=== PATIENT | female | born 1940 | race Caucasian/White ===

== ENCOUNTER 2017-02-19 09:08 | Observation (INO) ==
[2017-02-19] MEDS ORDERED: SALINE FLUSH 10ml SYRINGE IVF PRN (09:32)
--- NOTE | 2017-02-19 09:42 | Emergency Department Report ---
Neuro HPI - General Chief Complaint: Altered Mental Status Stated Complaint: Confusion/ left side of face is sore Time Seen by Provider: 02/19/17 09:12 Source: patient, family Mode of arrival: ambulatory Limitations: no limitations - History of Present Illness HPI Narrative: 76yo woman presented to the ER under moderate duress for transient neuro deficits. Pt was at home yesterday (around 1200), when she began to have 'word salad' during a telephone conversation. Pt was able to speak most words clearly , but began to say the wrong word with increasing frequency. Pt tried to dial someone to help her (she was home alone), but she was unable to dial the number she wanted. Pt became frantic, but a cleaning lady came to the home. The cleaning lady was able to contact family members. The children and then came home; the children encouraged the pt to come to the ER last night, but she refused. Sx continued throughout the evening, but pt just 'avoided talking' to avoid having 'symptoms'. This AM, pt awoke without similar trouble finding words , she has not tried to dial (so she doesn't know if she has trouble with numbers anymore), and now has an ache in her left face. Denies weakness or drooping throughout this time. All of her children called again this morning to demand that the pt go to the ER. Onset (ago): hour(s) (9) Time: 1200 Location: speech, left face History of same: No Severity: moderate Relieving factors: none Exacerbating factors: none Context: sudden onset On Anticoagulants: No Associated symptoms: confusion, other Treatments Prior to Arrival: none - Related Data Home Medications: Home Medications Medication Instructions Recorded Confirmed Lactobacillus Combo No.11 1 each PO DAILY 02/19/17 02/19/17 [Probiotic] Multivitamin [Multivitamins] 1 each PO DAILY 02/19/17 02/19/17 Ubidecarenone [Co Q10] 60 mg PO DAILY 02/19/17 02/19/17 Allergies/Adverse Reactions: Allergies Allergy/AdvReac Type Severity Reaction Status Date / Time No Known Allergies Allergy Verified 02/19/17 09:15 Review of Systems All systems: reviewed and negative except as stated Neurological: Reports: as per HPI, paresthesias, confusion. Denies: headache, weakness, numbness, abnormal gait, vertigo [facility] Medical History TIA (transient ischemic attack) (Acute Medical) Medical History Updates: Denies Physical Exam - Limitations Limitations: no limitations - General General appearance: alert, in no apparent distress - Normal Exams: Head:: Normocephalic without trauma Eyes:: Pupils are PERRLA w/ EOMI, No scleral icterus, irritation, or foreign bodies noted ENMT:: No facial trauma, nasal exudates, pharyngeal erythema, or exudates are noted Neck:: Full range of motion, without adenopathy Chest/Respirations:: Clear all maxwell, with good airflow, and symmetry bilaterally Cardiovascular:: Regular rate and rhythm, without murmur or gallop, Pulses 2+ all extremities, capillary refill, <2 seconds all extremities Lymphatic:: No lymphadenopathy Musculoskeletal:: No tenderness, or deformity noted Integumentary:: No rashes, hives, or bruising noted Neurological:: Patient is alert Psychiatric:: Patient exhibits, appropriate attention - Expanded Neurological Exam Patient oriented to: Present: person, place. Absent: time Speech: Present: fluid speech Cranial nerves: Normal: EOM function (II, III, IV, ), facial palsy (VII), spinal accessory function (XI), tongue deviation (XII), Abnormal Left: facial sensation (V) Cerebellar function: normal gait Motor strength - LUE: 5/5 Motor strength - RUE: 5/5 Motor strength - LLE: 5/5 Motor strength - RLE: 5/5 Upper motor neuron exam: Absent bilaterally: betina neglect, pronator drift DTR: 2+: biceps (L), biceps (R), patellar (L), patellar (R) Coma scale eye opening: spontaneous Coma scale motor response: obeys commands Coma scale verbal response: oriented Coma scale total: 15 Course - Consultations Consultation #1: Dr. Jarvis: Will admit for obs and further w/u. Time: 10:10 Vital Signs Temperature 98 F 02/19/17 09:16 Pulse Rate 74 02/19/17 09:16 Respiratory Rate 16 02/19/17 09:16 Blood Pressure 140/86 H 02/19/17 09:16 Pulse Oximetry 97 02/19/17 09:16 Temperature 98 F 02/19/17 09:16 Pulse Rate 63 02/19/17 10:03 Respiratory Rate 12 02/19/17 10:03 Blood Pressure 123/72 02/19/17 10:03 Pulse Oximetry 97 02/19/17 10:03 Neuro Symptoms/Deficit - MDM Narrative Medical decision making narrative: Pt with TIA vs CVA on hx. Pt is not on medication for primary prevention. Denies PMHx. Strong concern for undiagnosed/untreated underlying risk factors. Will discuss admission for MRI, further eval, and secondary prevention. Pt and family voiced understanding of dx, prognosis, tx, and f/u need. - Differential Diagnosis Likely: delirium, subarachnoid hemorrhage, peripheral neuropathy, cerebrovascular accident, transient cerebral ischemia - Medical Records Attestation: I reviewed the patient's medical records. - Lab Data Attestation: I reviewed the patient's lab results. Result diagrams: 02/19/17 09:59 02/19/17 09:59 Lab Results 02/19/17 02/19/17 02/19/17 Range/Units 09:59 09:59 10:28 WBC 4.2 L (4.5-11.0) T/MM3 RBC 4.20 (4.00-5.20) M/MM3 Hgb 12.6 (12-16) GM/DL Hct 39.3 (36-46) % MCV 93.6 (80-100) UM3 MCH 30.0 (26-34) UUG MCHC 32.1 (31-37) GM/DL RDW Std Deviation 46.8 (36.9-50.2) FL Plt Count 240 (130-400) T/MM3 MPV 9.9 (9.4-12.4) UM3 Immature Gran % (Auto) 0.0 (0.0-0.5) % Neut % (Auto) 53.7 (33-66) % Lymph % (Auto) 30.9 (23-45) % [place] % (Auto) 10.7 H (0-9.0) % Eos % (Auto) 4.0 (0-4) % Baso % (Auto) 0.7 (0-2) % Neut # (Auto) 2.3 (1.8-7.7) T/MM3 Lymph # (Auto) 1.3 (1-4.8) T/MM3 [place] # (Auto) 0.5 (0-0.8) T/MM3 Eos # (Auto) 0.2 (0-0.5) T/MM3 Baso # (Auto) 0.0 (0-0.2) T/MM3 Abs Immat Gran (auto) 0.00 (0.00-0.03) T/MM3 Turbidity < 20 (0-20) Sodium 144 (134-144) MEQ/L Potassium 4.0 (3.6-5) MEQ/L Chloride 109 H (98-107) MEQ/L Carbon Dioxide 26 (22-30) MEQ/L Anion Gap 9 (5-15) MEQ/L BUN 13.0 (7-17) MG/DL Creatinine 0.7 (0.7-1.2) MG/DL GFR Calculation 81 BUN/Creatinine Ratio 19 (6-26) RATIO Glucose 85 (65-110) MG/DL Calculated Osmolality 276 (261-280) MOSM/KG Calcium 9.1 (8.4-10.2) MG/DL Total Bilirubin 0.50 (0.20-1.30) MG/DL Icterus Index < 2 (0-7) AST 20 (14-36) U/L ALT 34 (9-52) U/L Alkaline Phosphatase 72 (38-126) U/L Troponin I < 0.012 (0-0.12) ng/ml Total Protein 6.7 (6.3-8.2) G/DL Albumin 3.9 (3.5-5.0) G/DL Globulin 2.8 (2.4-3.6) G/DL Albumin/Globulin Ratio 1.4 (1.1-2.2) RATIO Specimen Hemolysis < 15 (0-25) Ur Collection Type Urine, clean catch Urine Color Yellow (YELLOW) Urine Clarity Clear Urine pH 6.5 (5.0-8.0) Ur Specific [place] 1.010 L (1.015-1.025) Urine Protein Negative (NEGATIVE) Urine Glucose (UA) Negative (NEGATIVE) Urine Ketones Negative (NEGATIVE) Urine Occult Blood Negative (NEGATIVE) Urine Nitrate Negative (NEGATIVE) Urine Bilirubin Negative (NEGATIVE) Urine Urobilinogen 0.2 (NORMAL) EU/DL Ur Leukocyte Esterase Negative (NEGATIVE) Urinalysis Comment Microscopic not ind. - Radiology Data Attestation: I reviewed the patient's radiology results. CT Head: IMPRESSION: 1. No acute intracranial hemorrhage or obvious territorial stroke. 2. Extensive white matter disease slightly advanced for the patient's age probably representing chronic microvascular ischemia. Due to the diffuse involvement and lack of available comparison, a small area of acute ischemia could be easily obscured by this process. MRI can be performed for further evaluation of acute ischemia as clinically indicated. 3. Acute on chronic right maxillary sinusitis. Disposition Clinical Impression: TIA (transient ischemic attack) Qualifiers: Transient cerebral ischemia type: unspecified Qualified Code(s): G45.9 - Transient cerebral ischemic attack, unspecified Disposition: Discharged Home, Self-Care Print Language: Vietnamese Condition: Stable Prescriptions: No Action Multivitamin [Multivitamins] 1 each PO DAILY Lactobacillus Combo No.11 [Probiotic] 1 each PO DAILY Ubidecarenone [Co Q10] 60 mg PO DAILY Time of Disposition: 10:23 - Seen By: physician
--- OUTSIDE RECORDS SUMMARY | 2017-02-19 09:54 | External Medical Summary | Continuity of Care Document ---
:1940 Author Organization [facility] Allergies Medications Problems Procedures Results Encounters ACCT No. Visit Discharge Status Pt. Type Provider Facility Loc./Unit Complaint Date/Time [id number] 07/30/2016 07/30/2016 CLS Outpatient [facility], 08:53:00 23:59:59 Hamilton Musa [id number] 07/30/2016 07/30/2016 CLS Outpatient Delia, 08:52:00 23:59:59 Yanet
--- NOTE | 2017-02-19 09:55 | CT Scan Report ---
Indication: Neuro def PROCEDURE: CT head/brain wo con: Encounter: Initial Comparison: None Technique: Axial CT images through the head were performed without contrast. Iterative Reconstruction dose reducing technique was utilized. FINDINGS: Bilateral basal ganglia calcifications. The ventricles are of normal size, shape, and contour for the patient's age. Multiple low-attenuation regions are seen in the bilateral frontoparietal white matter probably due to chronic microvascular ischemia. The brainstem, cerebellum, and cerebral hemispheres otherwise have a normal morphology and CT attenuation. There is no evidence of midline displacement. No hemorrhage, signs of acute territorial stroke, mass effect, mass lesions, or edema is evident. The visualized portions of the skull base, midface, and calvarium demonstrate no abnormality. Acute on chronic right maxillary sinusitis. The tympanic and mastoid cavities appear normal. IMPRESSION: 1. No acute intracranial hemorrhage or obvious territorial stroke. 2. Extensive white matter disease slightly advanced for the patient's age probably representing chronic microvascular ischemia. Due to the diffuse involvement and lack of available comparison, a small area of acute ischemia could be easily obscured by this process. MRI can be performed for further evaluation of acute ischemia as clinically indicated. 3. Acute on chronic right maxillary sinusitis. .
--- NOTE | 2017-02-19 10:02 | XRay Report ---
Indication: TIA PROCEDURE: XR chest 1V: Encounter: Initial Comparison: None FINDINGS: Asymmetric increased density to the right hilum. Lungs are otherwise clear. No pleural effusion or pneumothorax identified. The heart size, pulmonary vasculature and mediastinum are within normal limits. No significant skeletal abnormality is seen. IMPRESSION: Asymmetric increased density of the right hilum could represent an area of atelectasis or less likely lymphadenopathy/mass. Comparison with any available prior study with be helpful. Noncontrast chest CT could be performed for further evaluation on a nonemergent basis. .
[2017-02-19 11:38] VITALS: BMI 23.1
--- NOTE | 2017-02-19 12:55 | History & Physical Report ---
History of Present Illness Date: 02/19/17 Chief complaint: stroke like symtpoms yesterday HPI: Patient is a 76 yo female who came in to the ER this am b/c she had stroke like sxs yesterday. She reports that yesterday afternoon she had a 30+ minute period where she was saying the wrong words and couldn't dial her phone to call for help and her speech was slurred. Some cleaning ladies came by a little while after this and she states she talked to them, but she talked very slowly and was able to communicate. She states she didn't tell them she was having any problems. By the time her arrived home, her sxs had resolved and he didn't think she needed to come to ER. He thought she was just stressed out. This am she woke up with a dull ache to the entire L side of her face, but no numbness. Her children insisted this am that she come to be evaluated. She has no weakness and all speech issues have resolved. No h/o HTN. Takes no Rx meds. In general, is in good health. See Dr. Capo Shukla for her primary care. In ER she had CT head showing white matter disease and acute on chronic R maxillary sinusitis. CXR showed an asymmetric increased density of the right hilum which could represent an area of atelectasis or less likely lymphadenopathy/mass. Labs were essentially normal. She was admitted for observation and further w-u including MRI, carotid sono and echo. Review of Systems All systems PM: 10-point ROS was reviewed, no additional remarkable complaints except - EENMT EENMT Comments: L side of face "aches" - Gastrointestinal Gastrointestinal: Present: constipation (chronic) - Musculoskeletal Musculoskeletal Comments: decreased ROM in L arm due to previous frozen shoulder. PFSH Medical History H/o migraines H/o L frozen shoulder chronic constipation Surgical History: hyst/bladder repair (states following this surgery she had some memory loss) Family History: F - Alzheimers M - MS Brother - "heart problems" - Social History Smoking status: Never smoker Substance use type: does not use Alcohol intake frequency: does not drink Housing: house Household members: spouse Current occupational status: retired Social history: PCP- Dr. Capo Shukla Moved here from [place] approx a year ago. Medications Home Medications Medication Instructions Recorded Confirmed Type Lactobacillus Combo No.11 1 each PO DAILY 02/19/17 02/19/17 History [Probiotic] Multivitamin [Multivitamins] 1 each PO DAILY 02/19/17 02/19/17 History Ubidecarenone [Co Q10] 60 mg PO DAILY 02/19/17 02/19/17 History Allergies Allergy/AdvReac Type Severity Reaction Status Date / Time No Known Allergies Allergy Verified 02/19/17 09:15 Exam Vital Signs: Temperature 96.0 F L 02/19/17 11:32 Pulse Rate 63 02/19/17 11:32 Respiratory Rate 16 02/19/17 11:32 Blood Pressure 117/67 02/19/17 11:32 Pulse Oximetry 98 02/19/17 11:32 Height/Weight/BMI: Height 1.63 m Weight 61.2 kg Body Mass Index 23.1 - Constitutional Present: no acute distress, well nourished, well developed, thin - Routine HEENT Exam Head: Present: normocephalic, atraumatic Eye: Present: EOMI, PERRL ENT: Present: mucous membranes moist, dentition normal - Routine Neck Exam Present: supple. Absent: carotid bruit, lymphadenopathy, thyromegaly - Routine Respiratory Exam Present: CTA bilaterally. Absent: wheezes - Routine Cardiovascular Exam Present: RRR, S1, S2. Absent: murmur - Routine Abdominal Exam Present: soft, normoactive bowel sounds, non distended. Absent: tenderness - Routine Extremities Exam Present: no edema, normal capillary refill - Routine Skin Exam Present: dry, warm - Routine Neurological Exam Present: alert, oriented X3, CN II-XII intact, moving all extremities, normal tone, vision grossly intact, hearing grossly intact (wears hearing aids), normal speech. Absent: sensory deficit, motor deficit, pronator drift, altered mental status, facial asymmetry, tremors 5/5 strength to all extremities. - Detailed Neurological Exam Sensory: Normal lower extremity light touch, Normal upper extremity light touch - Routine Psychiatric Exam Present: normal affect, normal thought process, cooperative, good insight, good judgment. Absent: depressed, anxious Results - Labs CBC & Chem 7: 02/19/17 09:59 02/19/17 09:59 Labs: Troponin and ALT, AST, alk phos all nl. UA - neg - Imaging and Cardiology CT scan - head Additional comments: IMPRESSION: 1. No acute intracranial hemorrhage or obvious territorial stroke. 2. Extensive white matter disease slightly advanced for the patient's age probably representing chronic microvascular ischemia. Due to the diffuse involvement and lack of available comparison, a small area of acute ischemia could be easily obscured by this process. MRI can be performed for further evaluation of acute ischemia as clinically indicated. 3. Acute on chronic right maxillary sinusitis. Chest x-ray Additional comments: IMPRESSION: Asymmetric increased density of the right hilum could represent an area of atelectasis or less likely lymphadenopathy/mass. Comparison with any available prior study with be helpful. Noncontrast chest CT could be performed for further evaluation on a nonemergent basis. Assessment and Plan Assessment and Plan: Assessment TIA Acute on chronic right maxillary sinusitis Possible abnormal finding on CXR H/o migraine headaches H/o L frozen shoulder Plan Admit to observation status under hospitalist service (Dr Jarvis, attending) for further workup to include carotid sonogram,, echocardiogram, MRI of brain. Will start a daily aspirin and statin. Will need to discuss the pros and cons of the statin with patient as she does not wish to take medicines unless she believes it absolutely necessary. Will plan to discuss this tomorrow with patient. SCDs for DVT prophylaxis. She will also be up walking frequently. Hopefully will be discharged tomorrow. Will check with patient to see if she has any symptoms of sinusitis given the findings on CT. If she has classic findings that could correlate with a bacterial sinusitis, will proceed with antibiotic coverage. We'll have her follow up with her PCP regarding the findings on her chest x- ray. Perhaps they may be able to access previous chest x-ray. Patient wishes to be DO NOT RESUSCITATE. Patient's care return to Dr. Capo Shukla upon discharge. Case discussed with Dr. Jarvis, patient's daughter and nurse. I have independently evaluated and examined this patient. I reviewed the chart, the patient's history, and the LICENSED PHARMACIST/PA's documented findings as above. We discussed and formulated the assessment and plan as above with additions as below: Mrs. Gonzales is a 76 year old who had trouble finding the right words then dialing her phone yesterday. Today, at family's urging she presented to the ER. Her symptoms had resolved. She was brought in under observation to w/u a suspected TIA. 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 The patient was not taking an aspirin a day. She does not like taking medications. She denies any weakness. Her facial pain has resolved. She is a wd/wn female in nad. Lungs are ctab. Heart is rrr w/o m,r,g. Abdomen is benign. Ext with no c/c/e. CN II-XII are intact. No focal defecit. She is A& O. Patient has been started on ASA and statin. It has been explained to her, more than once, that these meds are to try to prevent another stroke. It has also been explained that symptoms like these need prompt medical attention and she should call if she experiences stroke-like symptoms again. Will monitor BP. Carotid doppler is unremarkable. By verbal report her echo is OK. Expect she will go home tomorrow. DVT Prophylaxis: SCD's Resuscitation Status: Do Not Resuscitate Hospital Course Summary Disclaimer: The visit summary below is not to be considered part of the above Progress Note. Hospital Course: Assessment TIA Acute on chronic right maxillary sinusitis Possible abnormal finding on CXR H/o migraine headaches H/o L frozen shoulder 02/19/17 admission for hospital observation Admit to observation status under hospitalist service (Dr Jarvis, attending) for further workup to include carotid sonogram,, echocardiogram, MRI of brain. Will start a daily aspirin and statin. Will need to discuss the pros and cons of the statin with patient as she does not wish to take medicines unless she believes it absolutely necessary. Will plan to discuss this tomorrow with patient. SCDs for DVT prophylaxis. She will also be up walking frequently. Hopefully will be discharged tomorrow. Will check with patient to see if she has any symptoms of sinusitis given the findings on CT. If she has classic findings that could correlate with a bacterial sinusitis, will proceed with antibiotic coverage. We'll have her follow up with her PCP regarding the findings on her chest x- ray. Perhaps they may be able to access previous chest x-ray. Patient wishes to be DO NOT RESUSCITATE. Patient's care return to Dr. Capo Shukla upon discharge. Case discussed with Dr. Jarvis, patient's daughter and nurse. 02/19/17 21:41 Patient has been started on ASA and statin. It has been explained to her, more than once, that these meds are to try to prevent another stroke. It has also been explained that symptoms like these need prompt medical attention and she should call 9--1 if she experiences stroke-like symptoms again. Will monitor BP. Carotid doppler is unremarkable. By verbal report her echo is OK. Expect she will go home tomorrow.
--- NOTE | 2017-02-19 15:05 | Ultrasound Report ---
Indication: stroke like sxs PROCEDURE: US carotid doppler BI: TECHNIQUE: Grayscale, color and duplex Doppler imaging was performed of the carotid systems bilaterally. Velocities in cm/sec - validated velocity measurements with angiographic measurements, velocity criteria are extrapolated from diameter data as defined by the Society of Radiologists in Ultrasound Consensus Conference Radiology 2003; 229;340-346. RIGHT: PSV ICA 91.1 EDV ICA 32.1 PSV CCA 77.6 EDV CCA 17.3 SVR 1.2 PSV ECA 104 ICA Diameter reduction 10%-30% (1.0-1.2 PSV<110)% LEFT: PSV ICA 97.1 EDV ICA 30.1 PSV CCA 76.1 EDV CCA 13.3 SVR 1.3 PSV ECA 105 ICA Diameter reduction 20%-40% (1.2-1.4 [id number])% The right vertebral artery is patent with cephalic flow. The left vertebral artery is patent with cephalic flow. Minimal plaque in the carotid bulbs. No focal velocity elevation. IMPRESSION: No hemodynamically significant carotid stenosis. .
[2017-02-19] MEDS ORDERED: ACETAMINOPHEN 325 MG TABLET PO PRN (15:59)
--- NOTE | 2017-02-19 16:33 | Magnetic Resonance Report ---
Indication: stroke like sxs PROCEDURE: MR head/brain wo con: Encounter: Initial Comparisons: Head CT from today Technique: Multiplanar, multisequence, MR imaging of the head without contrast was acquired. FINDINGS: Small 6 mm focus of punctate acute diffusion restriction in the left parietal lobe on diffusion weighted image #14. This is in the subcortical area and has expected T2/FLAIR hyperintensity, blending in with existing diffuse periatrial white matter hyperintense lesions. One additional similar sized punctate focus of diffusion restriction in the left occipital lobe seen on image #18. The ventricles are of normal size, shape, and contour for the patient's age. There are extensive areas of T2-weighted and T2 FLAIR weighted signal abnormality in the deep frontoparietal white matter that most likely represent small vessel ischemic disease. This is advanced for the patient's age. The brain stem, cerebellum, and cerebral hemispheres otherwise have a normal morphologic appearance as well as MR signal intensity on all pulse sequences. There is no evidence of an intracranial mass lesion, intracranial hemorrhage, or hydrocephalus. The visualized portions of the orbits, calvarium, and skull base demonstrate no significant abnormality. Mostly opacified right sinus with an acute air-fluid level again noted. 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 .
--- NOTE | 2017-02-19 20:52 | Echocardiogram ---
DATE OF PROCEDURE February 19, 2017 This is a two-dimensional echo with spectral Doppler, color-flow and M-mode. It was obtained in a patient with stroke-like symptoms with dysphagia and right arm weakness. Left atrial dimension is normal. Left ventricular end-diastolic dimension is normal. Left ventricular wall thickness is normal. LV systolic function is normal with ejection fraction of 75%. Right atrium is normal. Right ventricle is normal. Aortic root dimension is normal. Grossly, there is no intracardiac thrombus or mass. Mitral valve is morphologically normal with trace of mitral regurgitation. Aortic valve appears to be normal. Tricuspid valve shows mild tricuspid regurgitation with moderate pulmonary hypertension with estimated pulmonary artery systolic pressure of 44. Pulmonary valve shows no pulmonary insufficiency. There is no pericardial effusion. IMPRESSION 1. Grossly, no intracardiac thrombus or mass. 2. Normal LV systolic function with ejection fraction of 75%. 3. Mild tricuspid regurgitation with moderate pulmonary hypertension with estimated pulmonary artery systolic pressure of 44. 4. Trace of mitral regurgitation. MTDD
[2017-02-19] MEDS: ASPIRIN *EC* 81 MG TABLET PO SCH (21:39)
[2017-02-20 00:30] VITALS: RESP 16
[2017-02-20] MEDS ORDERED: UBIDECARENONE 60 MG PO SCH (09:00)
[2017-02-20] MEDS ORDERED: LACTOBACILLUS (15B cfu) CAPSULE PO SCH (09:00)
[2017-02-20] MEDS ORDERED: MULTI-VITAMIN PLAIN TABLET PO SCH (09:00)
[2017-02-20 09:10] VITALS: BP 110/66; PULSE 81; TEMP 96.5; O2SAT 95
[2017-02-20] MEDS: ASPIRIN *EC* 81 MG TABLET PO SCH (10:22)
[2017-02-20] MEDS ORDERED: COENZYME Q-10 200mg TABLET PO SCH (10:30)
--- NOTE | 2017-02-20 14:36 | Discharge Summary ---
<Ava Shaw - Last Filed: 02/20/17 18:09> Discharge Information Date of admission: 02/19/17 11:14 Anticipated date of discharge: 02/20/17 Attending Physician: Sanchez Jarvis IV, MD Primary care physician: Kaiden Shukla MD Consults: none - Discharge Diagnosis (1) CVA (cerebral vascular accident) Status: Acute CVA (acute L ELECTROTYPE SERVICER territory infarcts) Acute on chronic right maxillary sinusitis-found on CT head Possible abnormal finding on CXR H/o migraine headaches H/o L frozen shoulder - Laboratory Labs: Laboratory Tests 02/19/17 02/19/17 09:59 19:19 INR 0.99 APTT 26.9 AST 20 ALT 34 Alkaline Phosphatase 72 Troponin I < 0.012 Laboratory Tests 02/19/17 09:58 Triglycerides 56 Cholesterol 185 LDL Cholesterol, Calc 96.8 VLDL Cholesterol 11.2 HDL Cholesterol 77 H Cholesterol/HDL Ratio 2.4 Laboratory Tests 02/19/17 10:28 Ur Collection Type Urine, clean catch Urine Color Yellow Urine Clarity Clear Urine pH 6.5 Ur Specific [place] 1.010 L Urine Protein Negative Urine Glucose (UA) Negative Urine Ketones Negative Urine Occult Blood Negative Urine Nitrate Negative Urine Bilirubin Negative Urine Urobilinogen 0.2 Ur Leukocyte Esterase Negative - Radiology Radiology: Date of Exam: 02/19/17 Ordering Provider: Ava Shaw Type of Exam(s): MR head/brain wo con Reason for Exam(s): stroke like sxs Indication: stroke like sxs PROCEDURE: MR head/brain wo con: Encounter: Initial Comparisons: Head CT from today Technique: Multiplanar, multisequence, MR imaging of the head without contrast was acquired. FINDINGS: Small 6 mm focus of punctate acute diffusion restriction in the left parietal lobe on diffusion weighted image #14. This is in the subcortical area and has expected T2/FLAIR hyperintensity, blending in with existing diffuse periatrial white matter hyperintense lesions. One additional similar sized punctate focus of diffusion restriction in the left occipital lobe seen on image #18. The ventricles are of normal size, shape, and contour for the patient's age. There are extensive areas of T2-weighted and T2 FLAIR weighted signal abnormality in the deep frontoparietal white matter that most likely represent small vessel ischemic disease. This is advanced for the patient's age. The brain stem, cerebellum, and cerebral hemispheres otherwise have a normal morphologic appearance as well as MR signal intensity on all pulse sequences. There is no evidence of an intracranial mass lesion, intracranial hemorrhage, or hydrocephalus. The visualized portions of the orbits, calvarium, and skull base demonstrate no significant abnormality. Mostly opacified right sinus with an acute air-fluid level again noted. IMPRESSION: Two small punctate acute left ELECTROTYPE SERVICER territory infarcts involving the left parietal and occipital lobes. Date of Exam: 02/19/17 Ordering Provider: Ava Shaw Type of Exam(s): US carotid doppler BI Reason for Exam(s): stroke like sxs Indication: stroke like sxs PROCEDURE: US carotid doppler BI: TECHNIQUE: Grayscale, color and duplex Doppler imaging was performed of the carotid systems bilaterally. Velocities in cm/sec - validated velocity measurements with angiographic measurements, velocity criteria are extrapolated from diameter data as defined by the Society of Radiologists in Ultrasound Consensus Conference Radiology 2003; 229;340-346. RIGHT: PSV ICA 91.1 EDV ICA 32.1 PSV CCA 77.6 EDV CCA 17.3 SVR 1.2 PSV ECA 104 ICA Diameter reduction 10%-30% (1.0-1.2 PSV<110)% LEFT: PSV ICA 97.1 EDV ICA 30.1 PSV CCA 76.1 EDV CCA 13.3 SVR 1.3 PSV ECA 105 ICA Diameter reduction 20%-40% (1.2-1.4 [id number])% The right vertebral artery is patent with cephalic flow. The left vertebral artery is patent with cephalic flow. Minimal plaque in the carotid bulbs. No focal velocity elevation. IMPRESSION: No hemodynamically significant carotid stenosis. Date of Exam: 02/19/17 Type of Exam(s): US echo doppler complete DATE OF PROCEDURE February 19, 2017 This is a two-dimensional echo with spectral Doppler, color-flow and M-mode. It was obtained in a patient with stroke-like symptoms with dysphagia and right arm weakness. Left atrial dimension is normal. Left ventricular end-diastolic dimension is normal. Left ventricular wall thickness is normal. LV systolic function is normal with ejection fraction of 75%. Right atrium is normal. Right ventricle is normal. Aortic root dimension is normal. Grossly, there is no intracardiac thrombus or mass. Mitral valve is morphologically normal with trace of mitral regurgitation. Aortic valve appears to be normal. Tricuspid valve shows mild tricuspid regurgitation with moderate pulmonary hypertension with estimated pulmonary artery systolic pressure of 44. Pulmonary valve shows no pulmonary insufficiency. There is no pericardial effusion. IMPRESSION 1. Grossly, no intracardiac thrombus or mass. 2. Normal LV systolic function with ejection fraction of 75%. 3. Mild tricuspid regurgitation with moderate pulmonary hypertension with estimated pulmonary artery systolic pressure of 44. 4. Trace of mitral regurgitation. Date of Exam: 02/19/17 Ordering Provider: Daniel Germain DO Type of Exam(s): CT head/brain wo con Reason for Exam(s): Neuro def Indication: Neuro def PROCEDURE: CT head/brain wo con: Encounter: Initial Comparison: None Technique: Axial CT images through the head were performed without contrast. Iterative Reconstruction dose reducing technique was utilized. FINDINGS: Bilateral basal ganglia calcifications. The ventricles are of normal size, shape, and contour for the patient's age. Multiple low-attenuation regions are seen in the bilateral frontoparietal white matter probably due to chronic microvascular ischemia. The brainstem, cerebellum, and cerebral hemispheres otherwise have a normal morphology and CT attenuation. There is no evidence of midline displacement. No hemorrhage, signs of acute territorial stroke, mass effect, mass lesions, or edema is evident. The visualized portions of the skull base, midface, and calvarium demonstrate no abnormality. Acute on chronic right maxillary sinusitis. The tympanic and mastoid cavities appear normal. IMPRESSION: 1. No acute intracranial hemorrhage or obvious territorial stroke. 2. Extensive white matter disease slightly advanced for the patient's age probably representing chronic microvascular ischemia. Due to the diffuse involvement and lack of available comparison, a small area of acute ischemia could be easily obscured by this process. MRI can be performed for further evaluation of acute ischemia as clinically indicated. 3. Acute on chronic right maxillary sinusitis. . Date of Exam: 02/19/17 Ordering Provider: Daniel Germain DO Type of Exam(s): XR chest 1V Reason for Exam(s): TIA Indication: TIA PROCEDURE: XR chest 1V: Encounter: Initial Comparison: None FINDINGS: Asymmetric increased density to the right hilum. Lungs are otherwise clear. No pleural effusion or pneumothorax identified. The heart size, pulmonary vasculature and mediastinum are within normal limits. No significant skeletal abnormality is seen. IMPRESSION: Asymmetric increased density of the right hilum could represent an area of atelectasis or less likely lymphadenopathy/mass. Comparison with any available prior study with be helpful. Noncontrast chest CT could be performed for further evaluation on a nonemergent basis. History of Present Illness HPI: Patient is a 76 yo female who came in to the ER this am b/c she had stroke like sxs yesterday. She reports that yesterday afternoon she had a 30+ minute period where she was saying the wrong words and couldn't dial her phone to call for help and her speech was slurred. Some cleaning ladies came by a little while after this and she states she talked to them, but she talked very slowly and was able to communicate. She states she didn't tell them she was having any problems. By the time her arrived home, her sxs had resolved and he didn't think she needed to come to ER. He thought she was just stressed out. This am she woke up with a dull ache to the entire L side of her face, but no numbness. Her children insisted this am that she come to be evaluated. She has no weakness and all speech issues have resolved. No h/o HTN. Takes no Rx meds. In general, is in good health. See Dr. Capo Shukla for her primary care. In ER she had CT head showing white matter disease and acute on chronic R maxillary sinusitis. CXR showed an asymmetric increased density of the right hilum which could represent an area of atelectasis or less likely lymphadenopathy/mass. Labs were essentially normal. She was admitted for observation and further w-u including MRI, carotid sono and echo. Objective Vital signs: Temperature 96.5 F L 02/20/17 09:06 Pulse Rate 81 02/20/17 09:06 Respiratory Rate 16 02/20/17 09:06 Blood Pressure 110/66 02/20/17 09:06 Pulse Oximetry 95 02/20/17 09:06 Height/Weight/BMI: Height 1.63 m Weight 61.3 kg Body Mass Index 23.1 - Constitutional Present: well nourished, well developed - Routine HEENT Exam Head: Present: normocephalic, atraumatic Eye: Present: EOMI ENT: Present: mucous membranes moist - Routine Respiratory Exam Present: CTA bilaterally. Absent: wheezes - Routine Cardiovascular Exam Present: RRR, S1, S2. Absent: murmur - Routine Abdominal Exam Present: soft, normoactive bowel sounds, non distended. Absent: tenderness - Routine Extremities Exam Present: edema, normal capillary refill - Routine Skin Exam Present: dry, warm - Routine Neurological Exam Present: alert, oriented X3, CN II-XII intact - Routine Lymphatic Exam Lymphatic: Absent: adenopathy - Routine Psychiatric Exam Present: normal affect, cooperative Hospital Course This is a general summary of the patient's hospital course. For more details refer to the complete medical record. Hospital course: Assessment TIA Acute on chronic right maxillary sinusitis Possible abnormal finding on CXR H/o migraine headaches H/o L frozen shoulder 02/19/17 admission for hospital observation Admit to observation status under hospitalist service (Dr Jarvis, attending) for further workup to include carotid sonogram,, echocardiogram, MRI of brain. Will start a daily aspirin and statin. Will need to discuss the pros and cons of the statin with patient as she does not wish to take medicines unless she believes it absolutely necessary. Will plan to discuss this tomorrow with patient. SCDs for DVT prophylaxis. She will also be up walking frequently. Hopefully will be discharged tomorrow. Will check with patient to see if she has any symptoms of sinusitis given the findings on CT. If she has classic findings that could correlate with a bacterial sinusitis, will proceed with antibiotic coverage. We'll have her follow up with her PCP regarding the findings on her chest x- ray. Perhaps they may be able to access previous chest x-ray. Patient wishes to be DO NOT RESUSCITATE. Patient's care return to Dr. Capo Shukla upon discharge. Case discussed with Dr. Jarvis, patient's daughter and nurse. 02/20/17 MRI showed acute infarct. Patient was started on ASA 81mg and Lipitor 40mg qd. Echo and carotid sono were ok. Lipids were nl. Pt's sxs have completely resolved. Pt instructed to seek care immediately if she has further stroke sxs. She will see her PCP in 1 week. Discussed case with Dr. Shukla. I have relayed to him that I did not discuss the findings on CT or on CXR. He will address at her follow-up visit. Time spent with patient: greater than 35 minutes Discharge Plan - Discharge Disposition Disposition: Discharged Home, Self-Care *Condition: Stable Reason For Visit (Visit label in EMR): Confusion/ left side of face is sore - Discharge Medications *Discharge Medications: New Aspirin *EC* [Ecotrin] 81 mg PO DAILY tablet Atorvastatin [Lipitor] 1 tab PO HS #30 tab Continue Multivitamin [Multivitamins] 1 each PO DAILY Lactobacillus Combo No.11 [Probiotic] 1 each PO DAILY Ubidecarenone [Co Q10] 60 mg PO DAILY - Discharge Packet/Instructions *Diet: regular *Activity: normal daily activities *Pain Management/Treatment: n/a *Wound Care: n/a *Expected Signs/Symptoms: n/a *Notify Physician if: stroke sxs occur *During Business Hours Contact: Dr. Shukla *After Business Hours Contact: Dr. Shukla *Pending Lab/Results: No Pending Lab - Referrals/Follow Up *Referrals/Follow Up: Kaiden Shukla MD [Family Provider] - 1 Week - Patient Handouts - Dismissal Complete Discharge Instructions are:: Complete <Sanchez Jarvis IV - Last Filed: 02/20/17 19:00> Discharge Information Date of admission: 02/19/17 11:14 Attending Physician: Sanchez Jarvis IV, MD Primary care physician: Kaiden Shukla MD - Discharge Diagnosis (1) CVA (cerebral vascular accident) Status: Acute Objective Vital signs: Temperature 96.5 F L 02/20/17 09:06 Pulse Rate 81 02/20/17 16:00 Respiratory Rate 16 02/20/17 09:06 Blood Pressure 110/66 02/20/17 09:06 Pulse Oximetry 95 02/20/17 09:06 Height/Weight/BMI: Height 5 ft 4 in Weight 61.3 kg Body Mass Index 23.1 Hospital Course This is a general summary of the patient's hospital course. For more details refer to the complete medical record. Attestation Narriative - Attestation Attestation Narrative: 02/20/17 18:56 I have independently evaluated and examined this patient. I reviewed the chart, the patient's history, and the RING FACER/PA's documented findings as above. We discussed and formulated the assessment and plan as above with additions as below: Mrs. Gonzales says she is doing well. She denies any trouble speaking, no weakness, no headache. She is looking forward to go home. NAD CTAB RRR no murmur s/nt/nd no edema cn II-XII intact Patient to continue on ASA. Rx given for Lipitor on dismissal. Stable to dismiss to home.
== END 2017-02-20 17:00 | disposition home or self-care (01) ==
LOC: ED 09:08 → MED 09:08
PROVIDERS: ADMIT Hospitalist; ATTEND Hospitalist

== ENCOUNTER 2017-11-12 23:02 | Observation (INO) ==
--- OUTSIDE RECORDS SUMMARY | 2017-11-12 23:58 | External Medical Summary | Referral Summary ---
:1940 Author Organization [facility] Address [address] [place] [address] Care Team Providers Name Role Phone PROVIDER, NOTINSYSTEM Primary Care Physician Unavailable Encounter Date(s): 10/17/16 - 10/18/16 [facility] [address], [place] [address] Discharge Disposition: 01-Home or Self Care Attending Physician: Brionna Ellis MD Admitting Physician: Brionna Ellis MD Vital Signs Most recent to oldest [Reference Range]: 1 Temperature Oral [35.8-37.3 degC] 37.0 degC (10/18/16 12:13 PM) Temperature Skin [36-37 degC] 36.7 degC (10/17/16 1:30 PM) Temperature Temporal Artery [36.3-37.8 degC] 36.2 degC *LOW* (10/17/16 5:53 AM) Peripheral Pulse Rate [60-100 bpm] 83 bpm (10/18/16 12:13 PM) Heart Rate Monitored [60-100 bpm] 89 bpm (10/17/16 1:30 PM) Respiratory Rate [14-20 br/min] 16 br/min (10/18/16 12:13 PM) Blood Pressure [90-140/60-90 mmHg] 90/56 mmHg (10/18/16 12:13 PM) Mean Arterial Pressure, Cuff 85 mmHg (10/17/16 8:02 PM) SpO2 94 % (10/18/16 12:13 PM) Problem List Condition Effective Dates Status Health Status Informant Acute pain(Confirmed) Active Asthma(Confirmed) Active patient At risk for infection(Confirmed)1 Active 1Problem added automatically by system based on initiation of At Risk for Infection in Nutrition Planof Care Allergies, Adverse Reactions, Alerts No Known Medication Allergies Medications Benadryl 25 mg oral capsule 50 mg 2 caps, Oral, TID, 0 Refill(s) Start Date: 10/17/16 Status: Orderedibuprofen 800 mg oral tablet 800 mg 1 tabs, Oral, q8hr, Pain, 0 Refill(s) Start Date: 10/17/16 Status: OrderedNorco 5 mg-325 mg oral tablet 1 tabs, Oral, q4hr, Pain, 0 Refill(s) Start Date: 10/17/16 Status: OrderedProbiotic Formula 1 caps, Oral, Daily Start Date: 10/16/16 Status: OrderedZofran 4 mg oral tablet 8 mg 2 tabs, Oral, q8hr, Nausea or Vomiting, 0 Refill(s) Start Date: 10/17/16 Status: Ordered Results Hematology Most recent to oldest [Reference Range]: 1 WBC [4.8-10.8 10*3/uL] 4.0 10*3/uL *LOW* (10/17/16 5:44 AM) RBC [4.00-5.20] 4.26 (10/17/16 5:44 AM) Hgb [12.0-16.0 gm/dL] 13.1 gm/dL (10/17/16 5:44 AM) Hct [37.0-47.0 %] 39.9 % (10/17/16 5:44 AM) MCV [82.0-99.0 fL] 93.7 fL (10/17/16 5:44 AM) MCH [27.0-32.0 pg] 30.8 pg (10/17/16 5:44 AM) MCHC [32.0-36.0 gm/dL] 32.8 gm/dL (10/17/16 5:44 AM) RDW [11.5-14.5 %] 14.2 % (10/17/16 5:44 AM) Platelet [150-400 10*3/uL] 232 10*3/uL (10/17/16 5:44 AM) MPV [9.4-12.4 fL] 10.7 fL (10/17/16 5:44 AM) Chemistry Most recent to oldest [Reference Range]: 1 Sodium Lvl [136-144 mEq/L] 139 mEq/L (10/17/16 5:44 AM) Potassium Lvl [3.6-5.1 mEq/L] 3.6 mEq/L (10/17/16 5:44 AM) Chloride [99-109 mEq/L] 108 mEq/L (10/17/16 5:44 AM) CO2 [22-32 mEq/L] 27 mEq/L (10/17/16 5:44 AM) AGAP [3-20 mEq/L] 4 mEq/L (10/17/16 5:44 AM) BUN [4-20 mg/dL] 5 mg/dL (10/17/16 5:44 AM) Glucose Lvl [70-100 mg/dL] 93 mg/dL (10/17/16 5:44 AM) Creatinine Lvl [0.44-1.03 mg/dL] 0.62 mg/dL (10/17/16 5:44 AM) eGFR [>60 mL/min] >60 mL/min 1 (10/17/16 5:44 AM) Calcium Lvl [8.6-10.0 mg/dL] 9.0 mg/dL (10/17/16 5:44 AM) Albumin Lvl [3.5-4.8 gm/dL] 3.9 gm/dL (10/17/16 5:44 AM) Total Protein [6.1-7.9 gm/dL] 6.7 gm/dL (10/17/16 5:44 AM) Globulin [1.9-4.3 gm/dL] 2.8 gm/dL (10/17/16 5:44 AM) ALT [14-54 U/L] 17 U/L (10/17/16 5:44 AM) AST [15-41 U/L] 20 U/L (10/17/16 5:44 AM) Alk Phos [26-104 U/L] 73 U/L (10/17/16 5:44 AM) Bili Total [0.2-1.2 mg/dL] 0.7 mg/dL 2 (10/17/16 5:44 AM) Blood Glucose, Capillary [74-106 mg/dL] 90 mg/dL (10/17/16 6:00 AM) 1Result Comment: Multiply eGFR results by 1.21 for race.2Result Comment: Naproxen, specifically the metabolite O-desmethylnaproxen, may cause spurious elevation in Total Bilirubin levels.Blood Bank Results Most recent to oldest [Reference Range]: 1 ABO/Rh A POS (10/17/16 5:44 AM) Antibody Screen Tube NEG (10/17/16 5:44 AM) Immunizations No data available for this section Procedures Procedure Date Related Diagnosis Body Site Hysterectomy Robotic with Salpingo-Oophorectomy1 10/17/16 Insertion Tension Free Vaginal Tape2 10/17/16 1auto-populated from documented surgical [id number] from documented surgical case Social History Social History Type Response Smoking Status Never smoker Assessment and Plan No data available for this section
--- NOTE | 2017-11-13 00:53 | Emergency Department Report ---
Neuro HPI - General Chief Complaint: Neuro Symptoms/Deficit Stated Complaint: numbness in rt arm and heel of rt foot Time Seen by Provider: 11/12/17 23:52 Source: patient, family, RN notes reviewed, old records reviewed Mode of arrival: ambulatory Limitations: no limitations - History of Present Illness HPI Narrative: 77yo woman presents to the ER for right-sided hand/foot paresthesias. Pt had a stroke 9mos ago; was initially dx'ed as a TIA in the ER, but later confirmed to be CVA by MRI. Pt has been placed on appropriate medications for secondary prevention and has had risk-stratification testing. Four days ago, pt had right had numbness/paresthesia that resolved after appx 5 min. These sx recurred at intervals over the intervening 4 days; today, sx were accompanied by right foot paresthesias. Sx have since improved, but pt is concerned about a possible CVA. Onset (ago): day(s) Location: right arm, right leg History of same: No Severity: mild Quality: tingling, intermittent Relieving factors: time Exacerbating factors: none Context: sudden onset On Anticoagulants: Yes Associated symptoms: denies other symptoms Treatments Prior to Arrival: none - Related Data Home Medications: Home Medications Medication Instructions Recorded Confirmed Multivitamin [Multivitamins] 1 each PO DAILY 02/19/17 11/12/17 Sennosides [Senna] 8.6 mg PO PRN PRN 11/10/17 11/12/17 Previous Rx's Medication Instructions Recorded Aspirin *EC* [Ecotrin] 81 mg PO DAILY tab 02/20/17 Atorvastatin [Lipitor] 1 tab PO HS #30 tab 02/20/17 Allergies/Adverse Reactions: Allergies Allergy/AdvReac Type Severity Reaction Status Date / Time No Known Allergies Allergy Verified 11/12/17 23:54 Review of Systems All systems: reviewed and negative except as stated Neurological: Reports: as per HPI, numbness, paresthesias. Denies: headache, weakness, confusion, abnormal gait, vertigo PFSH Patient Stated Medical History Cerebrovascular Accident Yes Migraine Yes Cataracts Yes Asthma Yes: hx of Other GI Yes: constipation Other Musculoskeletal Yes: "frozen L shoulder" Anesthesia Reactions Yes: memory loss Medical History Updates: CVA. TIA Surgical History: hyst/bladder repair (states following this surgery she had some memory loss) - Social History Smoking status: Never smoker Substance use type: does not use Alcohol intake frequency: does not drink Housing: house Household members: spouse Current occupational status: retired Current residence: Apartment/Private Home Physical Exam - Limitations Limitations: no limitations - General General appearance: alert, in no apparent distress - Head Head exam: atraumatic, normocephalic, normal inspection - Eye Eye exam: Present: normal appearance, PERRL, EOMI. Absent: scleral icterus - ENT ENT exam: Present: normal exam, normal oropharynx, mucous membranes moist, normal external ear exam - Neck Neck exam: Present: normal inspection, full ROM, trachea midline. Absent: tenderness, lymphadenopathy - Chest Chest inspection: Present: normal inspection, symmetric chest wall rise. Absent : tenderness, rash - Respiratory Respiratory exam: Present: normal lung sounds bilaterally. Absent: respiratory distress, wheezes, stridor, prolonged expiratory phase, crackles - Cardiovascular Cardiovascular exam: Present: regular rate, normal rhythm, normal heart sounds. Absent: rubs, gallop, clicks - Abdominal Exam Abdominal exam: Present: soft, normal bowel sounds. Absent: distention, tenderness, guarding, rebound, rigidity - Extremities Exam Extremities exam: Present: normal inspection, full ROM, normal capillary refill. Absent: tenderness, pedal edema - Skin Skin exam: Present: warm, dry, intact. Absent: rash - Neurological Exam Neurological exam: Present: alert, oriented X3, CN II-XII intact, normal gait, reflexes normal - Expanded Neurological Exam Patient oriented to: Present: person, place, time Speech: Present: fluid speech Cranial nerves: Normal: EOM function (II, III, IV, ), facial sensation (V), facial palsy (VII), spinal accessory function (XI), tongue deviation (XII) Cerebellar function: normal gait Motor strength - LUE: 5/5 Motor strength - RUE: 5/5 Motor strength - LLE: 5/5 Motor strength - RLE: 5/5 Upper motor neuron exam: Absent bilaterally: betina neglect, pronator drift, Babinski sign DTR: 2+: biceps (L), biceps (R), patellar (L), patellar (R) Coma scale eye opening: spontaneous Coma scale motor response: obeys commands Coma scale verbal response: oriented Coma scale total: 15 - Psychiatric Psychiatric exam: Present: normal affect, normal mood Course - Consultations Consultation #1: Mynor Telemed: Unclear why pt was started on ASA and no plavix. Will admit for obs and obtain MRI in the AM. Time: 01:29 Vital Signs Temperature 97.8 F 11/12/17 23:04 Pulse Rate 72 11/12/17 23:04 Respiratory Rate 14 11/12/17 23:04 Blood Pressure 127/97 H 11/12/17 23:04 Pulse Oximetry 95 11/12/17 23:04 Temperature 97.8 F 11/12/17 23:04 Pulse Rate 74 11/13/17 00:48 Respiratory Rate 14 11/13/17 00:48 Blood Pressure 143/78 H 11/13/17 00:48 Pulse Oximetry 95 11/13/17 00:48 Neuro Symptoms/Deficit - MDM Narrative Medical decision making narrative: Discussed with hospitalist. Will admit for overnight obs and MRI in the AM. - Differential Diagnosis Likely: subarachnoid hemorrhage, peripheral neuropathy, cerebrovascular accident , transient cerebral ischemia - Medical Records Attestation: I reviewed the patient's medical records. - Lab Data Attestation: I reviewed the patient's lab results. Result diagrams: 11/13/17 00:56 11/13/17 00:56 Lab Results 11/13/17 11/13/17 11/13/17 Range/Units 00:45 00:56 00:56 WBC 4.9 (4.5-11.0) T/MM3 RBC 3.99 L (4.00-5.20) M/MM3 Hgb 12.3 (12-16) GM/DL Hct 37.5 (36-46) % MCV 94.0 (80-100) UM3 MCH 30.8 (26-34) UUG MCHC 32.8 (31-37) GM/DL RDW Std Deviation 46.0 (36.9-50.2) FL Plt Count 229 (130-400) T/MM3 MPV 10.1 (9.4-12.4) UM3 Immature Gran % (Auto) 0.0 (0.0-0.5) % Neut % (Auto) 54.0 (33-66) % Lymph % (Auto) 31.6 (23-45) % Ida % (Auto) 8.7 (0-9.0) % Eos % (Auto) 5.1 H (0-4) % Baso % (Auto) 0.6 (0-2) % Neut # (Auto) 2.7 (1.8-7.7) T/MM3 Lymph # (Auto) 1.6 (1-4.8) T/MM3 Ida # (Auto) 0.4 (0-0.8) T/MM3 Eos # (Auto) 0.3 (0-0.5) T/MM3 Baso # (Auto) 0.0 (0-0.2) T/MM3 Abs Immat Gran (auto) 0.00 (0.00-0.03) T/MM3 INR 0.92 (0.92-1.18) APTT 31.2 (24-36) SEC Turbidity (0-20) Sodium (136-146) MEQ/L Potassium (3.6-5) MEQ/L Chloride (98-107) MEQ/L Carbon Dioxide (22-30) MEQ/L Anion Gap (5-15) meq/L BUN (7-17) MG/DL Creatinine (0.7-1.2) mg/dL Estimated Creat Clear (>50) mL/min GFR Calculation (>60) mL/min BUN/Creatinine Ratio (6-26) RATIO Glucose (65-110) MG/DL Calculated Osmolality (261-280) MOSM/KG Calcium (8.4-10.2) MG/DL Total Bilirubin (0.20-1.30) MG/DL Icterus Index (0-7) AST (14-36) U/L ALT (1-35) U/L Alkaline Phosphatase (38-126) U/L Total Protein (6.3-8.2) g/dL Albumin (3.5-5.0) g/dL Globulin (2.4-3.6) G/DL Albumin/Globulin Ratio (1.1-2.2) RATIO Specimen Hemolysis (0-25) Ur Collection Type Urine, void-cc/notcc Urine Color Yellow (YELLOW) Urine Clarity Clear Urine pH 7.0 (5.0-8.0) Ur Specific [place] <=1.005 L (1.015-1.025) Urine Protein Negative (NEGATIVE) Urine Glucose (UA) Negative (NEGATIVE) Urine Ketones Negative (NEGATIVE) Urine Occult Blood Negative (NEGATIVE) Urine Nitrate Negative (NEGATIVE) Urine Bilirubin Negative (NEGATIVE) Urine Urobilinogen 0.2 (NORMAL) EU/DL Ur Leukocyte Esterase 1+ A (NEGATIVE) Urine RBC None seen (0-3) /HPF Urine WBC 3-5 (0-5) /HPF Urine Bacteria None seen (NEGATIVE) Ur Culture Indicated? Cult not indicated 11/13/17 Range/Units 00:56 WBC (4.5-11.0) T/MM3 RBC (4.00-5.20) M/MM3 Hgb (12-16) GM/DL Hct (36-46) % MCV (80-100) UM3 MCH (26-34) UUG MCHC (31-37) GM/DL RDW Std Deviation (36.9-50.2) FL Plt Count (130-400) T/MM3 MPV (9.4-12.4) UM3 Immature Gran % (Auto) (0.0-0.5) % Neut % (Auto) (33-66) % Lymph % (Auto) (23-45) % Ida % (Auto) (0-9.0) % Eos % (Auto) (0-4) % Baso % (Auto) (0-2) % Neut # (Auto) (1.8-7.7) T/MM3 Lymph # (Auto) (1-4.8) T/MM3 Ida # (Auto) (0-0.8) T/MM3 Eos # (Auto) (0-0.5) T/MM3 Baso # (Auto) (0-0.2) T/MM3 Abs Immat Gran (auto) (0.00-0.03) T/MM3 INR (0.92-1.18) APTT (24-36) SEC Turbidity < 20 (0-20) Sodium 142 (136-146) MEQ/L Potassium 3.9 (3.6-5) MEQ/L Chloride 106 (98-107) MEQ/L Carbon Dioxide 27 (22-30) MEQ/L Anion Gap 9 (5-15) meq/L BUN 13.0 (7-17) MG/DL Creatinine 0.8 D (0.7-1.2) mg/dL Estimated Creat Clear 41 (>50) mL/min GFR Calculation 69 (>60) mL/min BUN/Creatinine Ratio 16 (6-26) RATIO Glucose 94 (65-110) MG/DL Calculated Osmolality 273 (261-280) MOSM/KG Calcium 9.2 (8.4-10.2) MG/DL Total Bilirubin 0.50 (0.20-1.30) MG/DL Icterus Index < 2 (0-7) AST 34 (14-36) U/L ALT 27 (1-35) U/L Alkaline Phosphatase 84 (38-126) U/L Total Protein 6.8 (6.3-8.2) g/dL Albumin 4.2 (3.5-5.0) g/dL Globulin 2.6 (2.4-3.6) G/DL Albumin/Globulin Ratio 1.6 (1.1-2.2) RATIO Specimen Hemolysis < 15 (0-25) Ur Collection Type Urine Color (YELLOW) Urine Clarity Urine pH (5.0-8.0) Ur Specific [place] (1.015-1.025) Urine Protein (NEGATIVE) Urine Glucose (UA) (NEGATIVE) Urine Ketones (NEGATIVE) Urine Occult Blood (NEGATIVE) Urine Nitrate (NEGATIVE) Urine Bilirubin (NEGATIVE) Urine Urobilinogen (NORMAL) EU/DL Ur Leukocyte Esterase (NEGATIVE) Urine RBC (0-3) /HPF Urine WBC (0-5) /HPF Urine Bacteria (NEGATIVE) Ur Culture Indicated? - Radiology Data Attestation: I reviewed the patient's radiology results. CT Head: IMPRESSION: 1. No acute terrtorial ischemia. No intracranial hemorrhage or mass. 2. Focal and confluent white matter hypoattenuation in the periventricular and subcortical white matter hypoattenuation, similar to prior exam and likely represent chronic microvascular changes. If concern for acute ischemia persists consider further evaluation with MRI of brain. Disposition Clinical Impression: TIA (transient ischemic attack) Qualifiers: Transient cerebral ischemia type: unspecified Qualified Code(s): G45.9 - Transient cerebral ischemic attack, unspecified Disposition: To [facility] [place] Print Language: Bengali Condition: Stable Prescriptions: No Action Multivitamin [Multivitamins] 1 each PO DAILY Aspirin *EC* [Ecotrin] 81 mg PO DAILY tab Atorvastatin [Lipitor] 1 tab PO HS #30 tab Sennosides [Senna] 8.6 mg PO PRN PRN PRN Reason: Constipation Referrals: Kaiden Shukla MD [Primary Care Provider] - Time of Disposition: 01:41 - Seen By: physician
[2017-11-13 02:47] VITALS: BMI 23.6
[2017-11-13 03:21] VITALS: O2SAT 98
--- NOTE | 2017-11-13 04:13 | History & Physical Report ---
History of Present Illness Date: 11/13/17 Chief complaint: numbness in right hand HPI: The pt comes to the ER c/o of numbness in 2 fingers of her right hand and 2 lateral toes of her right foot that last about 5 minutes. This has been occurring once daily for the past 3 days. Tonight the symptoms lasted slightly longer and thus came to ER. She had a CVA 9 months ago and resultant mild confusion. She has a MRI already scheduled as an outpt for this morning but didn't want to wait that long. Review of Systems - Constitutional Constitutional: Present: fatigue. Absent: anorexia, daytime sleepiness, headache(s), lethargy - EENMT Eyes: Absent: blurry vision, change in vision - Cardiovascular Cardiovascular: Present: chest pain - Respiratory Respiratory: Absent: cough - Gastrointestinal Gastrointestinal: Absent: abdominal pain - Genitourinary Genitourinary: Present: as per HPI - Musculoskeletal Musculoskeletal: Absent: deformity, joint swelling, limited range of motion, muscle weakness - Neurological Neurological: Present: as per HPI Past Medical History Medical History Updates: CVA. TIA Surgical History: hyst/bladder repair (states following this surgery she had some memory loss) Family History: No Significant Family History - Social History Smoking status: Never smoker Medications Home Medications Medication Instructions Recorded Confirmed Type Multivitamin [Multivitamins] 1 each PO DAILY 02/19/17 11/12/17 History Aspirin *EC* [Ecotrin] 81 mg PO DAILY tab 02/20/17 11/12/17 Rx Atorvastatin [Lipitor] 1 tab PO HS #30 tab 02/20/17 11/12/17 Rx Sennosides [Senna] 8.6 mg PO PRN PRN 11/10/17 11/12/17 History Allergies Allergy/AdvReac Type Severity Reaction Status Date / Time No Known Allergies Allergy Verified 11/12/17 23:54 Exam Vital Signs: Temperature 95.7 F L 11/13/17 02:36 Pulse Rate 61 11/13/17 02:36 Respiratory Rate 18 11/13/17 02:36 Blood Pressure 141/84 H 11/13/17 03:04 Pulse Oximetry 98 11/13/17 02:36 Height/Weight/BMI: Height 1.63 m Weight 62.4 kg Body Mass Index 23.6 - Constitutional Present: no acute distress, well nourished - Routine HEENT Exam Head: Present: normocephalic Eye: Present: EOMI - Routine Neck Exam Present: supple - Routine Respiratory Exam Present: CTA bilaterally - Routine Cardiovascular Exam Present: RRR, no murmur - Routine Abdominal Exam Present: soft, normoactive bowel sounds - Routine Extremities Exam Present: no edema, full ROM - Routine Back/Spine/Pelvis Exam Back/Spine: Present: full ROM - Routine Neurological Exam Present: alert, oriented X3, CN II-XII intact. Absent: sensory deficit Results - Labs CBC & Chem 7: 11/13/17 00:56 11/13/17 00:56 Assessment and Plan (1) TIA (transient ischemic attack) Current visit: Yes Status: Acute Assessment and Plan: Symptoms have been present for several days but will monitor on telemetry, neuro checks, MRI head in am, PT>OT consulte. DVT Prophylaxis: SCD's - Physician Narrative Narrative: Date: 11/13/17 Time: 0410 Hospital Course Summary Disclaimer: The visit summary below is not to be considered part of the above Progress Note.
[2017-11-13] MEDS ORDERED: ACETAMINOPHEN 325 MG TABLET PO PRN (04:27)
[2017-11-13] MEDS ORDERED: ONDANSETRON 4 MG/2 ML INJECTION IVP PRN (04:27)
[2017-11-13] MEDS ORDERED: SENNA + DOCUSATE TABLET PO PRN (04:27)
[2017-11-13] MEDS ORDERED: BISACODYL 10 MG SUPPOSITORY RECTALLY PRN (04:27)
[2017-11-13 07:55] VITALS: RESP 16; TEMP 97.1
--- NOTE | 2017-11-13 08:35 | CT Scan Report ---
Indication: Right paresthesias PROCEDURE: CT head/brain wo con: Encounter: Initial Comparison: November 10, 2017 Technique: Axial CT images through the head were performed without contrast. Iterative Reconstruction dose reducing technique was utilized. FINDINGS: The ventricles are stable. There are numerous areas of low attenuation in the white matter which most likely represent changes from chronic microvascular ischemia. The brainstem, cerebellum, and cerebral hemispheres otherwise have a normal morphology and CT attenuation. There is no evidence of midline displacement. No hemorrhage, signs of acute territorial stroke, mass effect, mass lesions, or edema is evident. The visualized portions of the skull base, midface, and calvarium demonstrate no abnormality. The paranasal sinuses are well aerated and free of significant disease. The tympanic and mastoid cavities appear normal. IMPRESSION: No acute intracranial abnormality or hemorrhage. Stable head CT. There is a preliminary report by [facility]. .
[2017-11-13] MEDS ORDERED: ASPIRIN *EC* 81 MG TABLET PO SCH ×2 (09:00)
--- NOTE | 2017-11-13 09:09 | Magnetic Resonance Report ---
Indication: numbness in hands PROCEDURE: MR head/brain wo con: Encounter: Initial Comparisons: February 19, 2017 Technique: Multiplanar, multisequence, MR imaging of the head without contrast was acquired. FINDINGS: The ventricles are of normal size, shape, and contour for the patient's age. There are extensive areas of T2-weighted and T2 FLAIR weighted signal abnormality in the deep frontoparietal white matter that most likely represent small vessel ischemic disease. This is advanced for the patient's age. The brain stem, cerebellum, and cerebral hemispheres otherwise have a normal morphologic appearance as well as MR signal intensity on all pulse sequences. There are no areas of restricted diffusion on diffusion weighted imaging to suggest an acute infarct. There is no evidence of an intracranial mass lesion, intracranial hemorrhage, or hydrocephalus. The visualized portions of the orbits, calvarium and skull base demonstrate no significant abnormality. Significant mucosal thickening and fluid in the right maxillary sinus. IMPRESSION: No acute intracranial abnormality. Advanced small vessel ischemic white matter changes. Right maxillary sinusitis. .
--- NOTE | 2017-11-13 13:48 | Progress Note ---
- Date 11/13/17 Subjective: F/U: Right hand and foot numbness Doing okay overall. Notes some numbness to hand, but much better than last night. 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 Ambulating well. Did well with therapy. Breathing stable-not SOA or congested. No chest pressure or pain. Notes forgetfulness/memory problems. Objective Vital signs: Temperature 97.1 F 11/13/17 07:50 Pulse Rate 57 L 11/13/17 08:00 Respiratory Rate 16 11/13/17 07:50 Blood Pressure 115/71 11/13/17 08:00 Pulse Oximetry 98 11/13/17 07:50 Height/Weight/BMI: Height 1.63 m Weight 62 kg Body Mass Index 23.6 - Constitutional Present: no acute distress, well nourished, well developed, average body habitus , cooperative - Routine HEENT Exam Head: Present: normocephalic, atraumatic Eye: Present: EOMI, PERRL, normal accommodation. Absent: conjunctival icterus ENT: Present: mucous membranes moist - Routine Respiratory Exam Present: CTA bilaterally. Absent: rales, respiratory distress, rhonchi, stridor , wheezes, crackles - Routine Cardiovascular Exam Present: RRR, no murmur - Routine Abdominal Exam Present: soft, normoactive bowel sounds, non distended, non tender. Absent: rebound - Routine Extremities Exam Present: edema, pulses intact. Absent: cyanosis, clubbing - Routine Musculoskeletal Exam Musculoskeletal: Present: no clubbing or cyanosis - Routine Skin Exam Present: intact, dry, warm - Routine Neurological Exam Present: alert, oriented X3, CN II-XII intact, moving all extremities, vision grossly intact, hearing grossly intact, normal speech. Absent: motor deficit, altered mental status - Routine Psychiatric Exam Present: normal affect, normal thought process, cooperative Results - Labs CBC & Chem 7: 11/13/17 00:56 11/13/17 00:56 Assessment and Plan (1) Numbness and tingling in right hand Current visit: Yes Status: Acute (2) TIA (transient ischemic attack) Current visit: Yes Status: Acute Assessment and Plan: Assessment Numbness of right hand and foot - ? 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 Plan MRI showing: No acute intracranial abnormality. Advanced small vessel ischemic white matter changes. Right maxillary sinusitis. Patient participated well with therapy. Discussed with patient about MRI findings and clinical symptoms. Do not feel this is TIA - most likely peripheral neuronal disease. Outpatient Nerve conduction testing may be beneficial. With patient's advanced white matter changes of brain and memory impairment do feel changing ASA to Plavix would be prudent. Did also discuss with patient about possible use of Aricept to help memory and concentration. While I did recommend this medication, would defer initiation of Aricept to her primary care provider. Encouraged walking activities at home to help promote fitness and provide vascular protection. Continue with Lipitor as at home for stroke prevention. Medically stable for discharge to home. Follow up with Dr Shukla in 1 week. See orders for details. DVT Prophylaxis: SCD's Resuscitation Status: Full Code - Physician Narrative Physician: Kaleb James MD Narrative: Date: 11/13/17 Time: 1344 Hospital Course Summary Disclaimer: The visit summary below is not to be considered part of the above Progress Note. Hospital Course: 11/13/17 OBS initiated for monitoring of symptoms. Tele to monitor HR/Rhythm. ECHO/Carotid Doppler done in February - do not feel need repeated. MRI Brain as previously scheduled to r/o infarct. PT/OT to eval/treat functional status. Continue home ASA/Lipitor for stroke prevention. Full code per her requests Care to return to Dr Shukla at time [place] [facility] [place] showing: No acute intracranial abnormality. Advanced small vessel ischemic white matter changes. Right maxillary sinusitis. Patient participated well with therapy. Discussed with patient about MRI findings and clinical symptoms. Do not feel this is TIA - most likely peripheral neuronal disease. Outpatient Nerve conduction testing may be beneficial. With patient's advanced white matter changes of brain and memory impairment do feel changing ASA to Plavix would be prudent. Did also discuss with patient about possible use of Aricept to help memory and concentration. While I did recommend this medication, would defer initiation of Aricept to her primary care provider. Encouraged walking activities at home to help promote fitness and provide vascular protection. Continue with Lipitor as at home for stroke prevention. Medically stable for discharge to home. Follow up with Dr Shukla in 1 week. See orders for details.
[2017-11-13 16:01] VITALS: BP 120/68; PULSE 70
[2017-11-13] MEDS ORDERED: ATORVASTATIN 40 MG TABLET PO SCH ×2 (21:00)
--- NOTE | 2017-11-13 22:08 | Discharge Summary ---
Discharge Information Date of admission: 11/13/17 02:25 Anticipated date of discharge: 11/13/17 Attending Physician: Kaleb James MD Primary care physician: Kaiden Shukla MD Consults: PT/OT - Discharge Diagnosis (1) Numbness and tingling in right hand Status: Acute (2) TIA (transient ischemic attack) Status: Acute Problems Reviewed?: Yes Discharge diagnosis Numbness of right hand and foot - ? 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 - Laboratory Labs: 11/13/17 00:56 11/13/17 00:56 - Radiology Radiology: Date of Exam: 11/13/17 Type of Exam: CT head/brain wo con FINDINGS: The ventricles are stable. There are numerous areas of low attenuation in the white matter which most likely represent changes from chronic microvascular ischemia. The brainstem, cerebellum, and cerebral hemispheres otherwise have a normal morphology and CT attenuation. There is no evidence of midline displacement. No hemorrhage, signs of acute territorial stroke, mass effect, mass lesions, or edema is evident. The visualized portions of the skull base, midface, and calvarium demonstrate no abnormality. The paranasal sinuses are well aerated and free of significant disease. The tympanic and mastoid cavities appear normal. IMPRESSION: No acute intracranial abnormality or hemorrhage. Stable head CT. Date of Exam: 11/13/17 Type of Exam: MR head/brain wo con FINDINGS: The ventricles are of normal size, shape, and contour for the patient' s age. There are extensive areas of T2-weighted and T2 FLAIR weighted signal abnormality in the deep frontoparietal white matter that most likely represent small vessel ischemic disease. This is advanced for the patient's age. The brain stem, cerebellum, and cerebral hemispheres otherwise have a normal morphologic appearance as well as MR signal intensity on all pulse sequences. There are no areas of restricted diffusion on diffusion weighted imaging to suggest an acute infarct. There is no evidence of an intracranial mass lesion, intracranial hemorrhage, or hydrocephalus. The visualized portions of the orbits , calvarium and skull base demonstrate no significant abnormality. Significant mucosal thickening and fluid in the right maxillary sinus. IMPRESSION: No acute intracranial abnormality. Advanced small vessel ischemic white matter changes. Right maxillary sinusitis. History of Present Illness HPI: The pt comes to the ER c/o of numbness in 2 fingers of her right hand and 2 lateral toes of her right foot that last about 5 minutes. This has been occurring once daily for the past 3 days. Tonight the symptoms lasted slightly longer and thus came to ER. She had a CVA 9 months ago and resultant mild confusion. She has a MRI already scheduled as an outpt for this morning but didn't want to wait that long. For complete details of the H&P refer to that document. Objective Vital signs: Temperature 97.1 F 11/13/17 07:50 Pulse Rate 70 11/13/17 16:00 Respiratory Rate 16 11/13/17 16:00 Blood Pressure 120/68 11/13/17 16:00 Pulse Oximetry 98 11/13/17 16:00 Height/Weight/BMI: Height 1.63 m Weight 62 kg Body Mass Index 23.6 Hospital Course This is a general summary of the patient's hospital course. For more details refer to the complete medical record. Hospital course: 11/13/17 OBS initiated for monitoring of symptoms. Tele to monitor HR/Rhythm. ECHO/Carotid Doppler done in February - do not feel need repeated. MRI Brain as previously scheduled to r/o infarct. PT/OT to eval/treat functional status. Continue home ASA/Lipitor for stroke prevention. Full code per her requests Care to return to Dr Shukla at time of discharge from [facility] MRI showing: No acute intracranial abnormality. Advanced small vessel ischemic white matter changes. Right maxillary sinusitis. Patient participated well with therapy. Discussed with patient about MRI findings and clinical symptoms. Do not feel this is TIA - most likely peripheral neuronal disease. Outpatient Nerve conduction testing may be beneficial. With patient's advanced white matter changes of brain and memory impairment do feel changing ASA to Plavix would be prudent. Did also discuss with patient about possible use of Aricept to help memory and concentration. While I did recommend this medication, would defer initiation of Aricept to her primary care provider. Encouraged walking activities at home to help promote fitness and provide vascular protection. Continue with Lipitor as at home for stroke prevention. Medically stable for discharge to home. Follow up with Dr Shukla in 1 week. See orders for details. Time spent with patient: discharge greater than 30 minutes Resuscitation Status: Full Code Discharge Plan - Discharge Disposition Discharge Date: 11/13/17 Disposition: 01 Discharged Home, Self-Care *Condition: Stable Reason For Visit (Visit label in EMR): hand numbness - Discharge Medications *Discharge Medications: New Clopidogrel Bisulfate [Clopidogrel] 75 mg PO DAILY #30 tab Continue Multivitamin [Multivitamins] 1 each PO DAILY Atorvastatin [Lipitor] 1 tab PO HS #30 tab Sennosides [Senna] 8.6 mg PO PRN PRN PRN Reason: Constipation Discontinued Aspirin *EC* [Ecotrin] 81 mg PO DAILY tab - Discharge Packet/Instructions *Diet: Heart health diet *Activity: As tolerated. Increase walking activities to help heart and vascular health *Pain Management/Treatment: Continue prior home pain medications *Wound Care: N/A Additional Instructions: Use Plavix (clopidogrel) 75mg daily in place of Aspirin for stroke prevention. At next visit with Dr Shukla, can discuss use of Aricept (donepezil) for memory improvement. *Expected Signs/Symptoms: Temp >100.4. New onset weakness or right or left side of body. Palpitations/Chest pain. Any worrisome symptom. *Notify Physician if: Stability of symptoms *During Business Hours Contact: Dr Shukla *After Business Hours Contact: Contact [facility] and have Dr Shukla contacted. *Pending Lab/Results: No Pending Lab - Referrals/Follow Up *Referrals/Follow Up: Kaiden Shukla MD [Primary Care Provider] - 11/20/17 9:40 am (Hospital follow up for right hand and foot numbness. MRI without evidence of stroke. Likely peripheral neuronal disease. Conside outpatient nerve conduction testing. Pt does have small vessel disease of brain and memory decline - consider Aricept to help memory. Discussed with patient about this during hospitalization , but defer initiation of treatment to you. ) - Patient Handouts Patient Handouts: Transient Ischemic Attack (GEN) - Dismissal Complete Discharge Instructions are:: Complete Physician Narrative - Narrative Physician: Kaleb James MD Attestation Narrative: Date: 11/13/17 Time: 2203 I have independently interviewed and examined patient prior to discharge. See my progress note for details. Medically stable for discharge to home.
== END 2017-11-13 16:15 | disposition home or self-care (01) ==
LOC: MED 23:02 → ED 23:02
PROVIDERS: ADMIT Internal Medicine; ATTEND Hospitalist